=== PATIENT | female | born 1965 | race Two or more races ===

== ENCOUNTER 2019-12-19 22:29 | Inpatient (IN) | payer MEDICAID, OTHER ==
[~2019-12-19] VITALS: Ht 160 cm; Wt 61.4 kg
[2019-12-19] MEDS ORDERED: normal saline 1000ML IV soln IVB ONE (22:45)
[2019-12-19] MEDS ORDERED: ondansetron/PF 4mg/2ml inj IV ONE (22:45)
[2019-12-19 23:08] LABS: BASOPHILS # (AUTO) 0.1 X10'3 (0-0.2); BASOPHILS % (AUTO) 0.6 % (0-1); EOSINOPHILS # (AUTO) 0.1 X10'3 (0-0.9); EOSINOPHILS % (AUTO) 1.3 % (0-6); HEMATOCRIT 40.5 % (35.0-45.0); HEMOGLOBIN 14.3 g/dl (12.0-16.0); LYMPHOCYTES # (AUTO) 1.6 X10'3 (1.1-4.8); LYMPHOCYTES % (AUTO) 17.3 % (21-51); MEAN CORPUSCULAR HEMOGLOBIN 29.6 PG (27.0-31.0); MEAN CORPUSCULAR HGB CONC 35.4 g/dL (33.0-36.5); MEAN CORPUSCULAR VOLUME 83.7 FL (78-98); MEAN PLATELET VOLUME 7.7 FL (7.4-10.4); MONOCYTES # (AUTO) 0.5 X10'3 (0-0.9); MONOCYTES % (AUTO) 5.8 % (2-12); NEUTROPHILS # (AUTO) 7.1 X10'3 (1.8-7.7); PLATELET COUNT 251 X10'3 (140-440); RED BLOOD COUNT 4.83 X10'6 (4.20-5.60); RED CELL DISTRIBUTION WIDTH 12.9 % (11.5-14.5); WHITE BLOOD COUNT 9.4 X10'3 (4.5-11.0)
[2019-12-19 23:28] LABS: ALANINE AMINOTRANSFERASE 30 U/L (12-78); ALBUMIN 4.2 G/DL (3.4-5.0); ALBUMIN/GLOBULIN RATIO 1.4 (1.1-1.5); ALKALINE PHOSPHATASE 66 IU/L (46-116); ANION GAP 14 (8-16); ASPARTATE AMINO TRANSFERASE 21 U/L (10-37); BILIRUBIN,TOTAL 0.4 MG/DL (0.1-1.0); BLOOD UREA NITROGEN 11 MG/DL (7-18); BUN/CREATININE RATIO 12.9 (6.6-38.0); CALCIUM 8.6 MG/DL (8.5-10.1); CHLORIDE 75 MMOL/L (99-107); CREATININE 0.85 MG/DL (0.40-0.90); GLUCOSE 178 MG/DL (70-104); LIPASE 154 U/L (73-393); TOTAL CARBON DIOXIDE 25.9 MMOL/L (24-32); TOTAL PROTEIN 7.3 G/DL (6.4-8.2); eGFR 69 ML/MIN
[2019-12-19 23:32] LABS: POTASSIUM 2.6 MMOL/L (3.5-5.1); SODIUM 115 MMOL/L (135-145)
[2019-12-19 23:34] LABS: CLARITY,URINE CLEAR (Clear); COLOR,URINE YELLOW (Yellow); GLUCOSE, URINE NEGATIVE (Neg); KETONES,URINE 15 mg/dl (Neg); LEUKOCYTE ESTERASE ,URINE NEGATIVE (Neg); NITRITES, URINE NEGATIVE (Neg); OCCULT BLOOD,URINE NEGATIVE (Neg); PROTEIN,URINE 30 mg/dl (Neg); UROBILINOGEN,URINE 0.2 E.U/dL (0.2-1.0)
[2019-12-19] MEDS ORDERED: CITA20TA27 PO (23:35)
[2019-12-19] MEDS ORDERED: ATOR40TA72 PO (23:35)
[2019-12-19] MEDS ORDERED: LISI40TA4 PO (23:35)
[2019-12-19] MEDS ORDERED: CHLO50TA PO (23:35)
[2019-12-19] MEDS ORDERED: ASPI-10 PO (23:35)
[2019-12-19] MEDS ORDERED: METF-438 PO (23:35)
[2019-12-19 23:38] LABS: UA COLLECTION TYPE CLN CATCH MIDSTREAM
[2019-12-19] MEDS ORDERED: potassium Cl 20 mEq SR tablet PO ONE (23:40)
[2019-12-19 23:42] LABS: BACTERIA,URINE FEW /HPF (Neg); MUCUS STRANDS FEW /LPF (Neg); RBC,URINE NONE SEEN /HPF (0-2); SQUAMOUS EPITHELIAL CELL,UR FEW /LPF (FEW); WBC,URINE NONE SEEN /HPF (0-4)
[2019-12-19] MEDS: magnesium 2GM in 50ml NS 50 ML IV SCH (23:50)
[2019-12-19] MEDS: potassium Cl 10 mEq/100mL bag IV SCH (23:50)
[2019-12-20] MEDS ORDERED: LORazepam 2 mg/ml vial IV ONE (00:15)
[2019-12-20 00:18] LABS: MAGNESIUM 1.5 MG/DL (1.5-2.4)
[2019-12-20] MEDS ORDERED: potassium cl 20mEq in 1/2 NS 1,000 ML IV SCH (00:31)
[2019-12-20] MEDS ORDERED: dextrose ORAL solution 15 GM/59 ML bottle PO PRN ×2 (00:35)
[2019-12-20] MEDS ORDERED: acetaminophen 325mg tablet PO PRN (00:35)
[2019-12-20] MEDS ORDERED: glucagon, human recombinant 1mg kit SUBCUT PRN (00:35)
[2019-12-20] MEDS ORDERED: potassium Cl 20 mEq SR tablet PO PRN ×2 (00:35)
[2019-12-20] MEDS ORDERED: MESSAGE TO PHARMACY PO ONE (00:35)
[2019-12-20] MEDS ORDERED: insulin Lispro (HumaLOG) vial - multi-dose SQ SCH (00:35)
[2019-12-20] MEDS ORDERED: ondansetron/PF 4mg/2ml inj IV PRN (00:35)
[2019-12-20] MEDS ORDERED: dextrose 50%-water 50ml dispensing syringe IV PRN ×2 (00:35)
[2019-12-20] MEDS ORDERED: mag hydrox/Alum hydrox/simeth 30ml oral suspension PO PRN (00:35)
[2019-12-20] MEDS ORDERED: magnesium hydroxide 30ml (MOM) UD suspension PO PRN (00:35)
[2019-12-20] MEDS ORDERED: potassium CL 10mEq/100ml bag 100 ML IV PRN (00:35)
[2019-12-20] MEDS ORDERED: ALPRAZolam 0.25mg tablet PO PRN (00:40)
[2019-12-20] MEDS: magnesium 2GM in 50ml NS 50 ML IV SCH (00:40)
[2019-12-20] MEDS ORDERED: Potassium Cl inj 20 MEQ in normal saline 1000ml 990 ML IV SCH (01:10)
[2019-12-20] MEDS: potassium Cl 10 mEq/100mL bag IV SCH (01:18)
--- NOTE | 2019-12-20 01:42 | NUR ---
Patient in room ED 3. I have received report from CAREY Cisneros and had the opportunity to ask questions and assume patient care.
--- NOTE | 2019-12-20 01:55 | NUR ---
Patient arrived to the floor and was able to ambulate from [facility] in hallway to the bed with sba. Her daughter is at bedside and the patient has a stable gait and call light is in reach. She has been instructed to call for help and not to get out of bed on her own.
[2019-12-20 02:00] VITALS: BP 157/100
[2019-12-20] MEDS: potassium CL 10mEq/100ml bag 100 ML IV PRN ×3 (02:33→06:25)
[2019-12-20] MEDS: potassium Cl 20mEq in NS 1,000 ML IV SCH ×2 (02:38→10:57)
--- NOTE | 2019-12-20 06:29 | NUR ---
Problems reprioritized. Patient report given, questions answered & plan of care reviewed with CAREY Steele.
[2019-12-20 07:00] VITALS: BP 126/82
[2019-12-20] MEDS: K and/or MAG REPLACEMENT MC SCH ×2 (08:00→20:00)
[2019-12-20 08:14] LABS: ALANINE AMINOTRANSFERASE 30 U/L (12-78); ALBUMIN 3.7 G/DL (3.4-5.0); ALBUMIN/GLOBULIN RATIO 1.3 (1.1-1.5); ALKALINE PHOSPHATASE 57 IU/L (46-116); ANION GAP 6 (8-16); ASPARTATE AMINO TRANSFERASE 26 U/L (10-37); BILIRUBIN,TOTAL 0.4 MG/DL (0.1-1.0); BLOOD UREA NITROGEN 9 MG/DL (7-18); BUN/CREATININE RATIO 11.3 (6.6-38.0); CALCIUM 8.1 MG/DL (8.5-10.1); CHLORIDE 84 MMOL/L (99-107); GLUCOSE 135 MG/DL (70-104); POTASSIUM 3.8 MMOL/L (3.5-5.1); TOTAL CARBON DIOXIDE 29.5 MMOL/L (24-32); TOTAL PROTEIN 6.6 G/DL (6.4-8.2); eGFR 74 ML/MIN
[2019-12-20 08:17] LABS: SODIUM 119 MMOL/L (135-145)
[2019-12-20 08:53] LABS: BASOPHILS % (AUTO) 0.4 % (0-1); EOSINOPHILS # (AUTO) 0.1 X10'3 (0-0.9); EOSINOPHILS % (AUTO) 0.7 % (0-6); HEMATOCRIT 37.7 % (35.0-45.0); HEMOGLOBIN 13.3 g/dl (12.0-16.0); LYMPHOCYTES # (AUTO) 1.2 X10'3 (1.1-4.8); LYMPHOCYTES % (AUTO) 11.9 % (21-51); MEAN CORPUSCULAR HEMOGLOBIN 29.6 PG (27.0-31.0); MEAN CORPUSCULAR HGB CONC 35.2 g/dL (33.0-36.5); MEAN CORPUSCULAR VOLUME 83.9 FL (78-98); MEAN PLATELET VOLUME 7.8 FL (7.4-10.4); MONOCYTES # (AUTO) 0.5 X10'3 (0-0.9); MONOCYTES % (AUTO) 5.2 % (2-12); NEUTROPHILS # (AUTO) 8.6 X10'3 (1.8-7.7); NEUTROPHILS % (AUTO) 81.8 % (42-75); PLATELET COUNT 268 X10'3 (140-440); RED CELL DISTRIBUTION WIDTH 13.3 % (11.5-14.5); WHITE BLOOD COUNT 10.5 X10'3 (4.5-11.0)
[2019-12-20] MEDS: citalopram 20mg tablet PO SCH (08:59)
[2019-12-20] MEDS: aspirin 81mg tablet.DR PO SCH (08:59)
[2019-12-20] MEDS: atorvastatin 20mg tablet PO SCH (09:00)
[2019-12-20] MEDS: lisinopril 20mg tablet PO SCH (09:01)
[2019-12-20] MEDS: heparin, porcine 5000 units/ml vial SQ SCH ×2 (09:02→20:21)
[2019-12-20 10:00] VITALS: BP 116/78
[2019-12-20] MEDS: amLODIPine 5mg tablet PO SCH (10:28)
[2019-12-20] MEDS: normal saline 1000ml 1,000 ML IV SCH ×2 (10:36→20:21)
--- NOTE | 2019-12-20 12:16 | NUR ---
Student documentation: I have reviewed all interventions, assessments performed and documented by Roger Burrows. Student Medication Administration: For this medication-pass time frame, all medication were reviewed, dispensed, administered and documented per hospital policy by Roger Burrows.
--- NOTE | 2019-12-20 12:25 | NUR ---
DM Consult: A1C 7.1. Pt admit w/ hyponatremia and hypokalemia and N/V; recent metformin increase to BID from once daily per MD note. Na up to 119 from 115 on admit and K now WNL up from 2.6. Noted pt takes chlorthalidone at home as well. Pt/daughter seen by RD for written/verbal DM ed w/ RD contact information provided. RD reviewed types of carbs, portion sizing, protein foods, sick day guidelines, and oral hydration needs. Pt reports does eat lots of rice at home; RD encouraged following portion sizing guidelines. Addendum: 12/20/19 at [address] Amended: Links added.
[2019-12-20 18:00] VITALS: BP 106/68
--- NOTE | 2019-12-20 18:20 | NUR ---
Patient in room [facility] 4023B. I have received report from CAREY Yee and had the opportunity to ask questions and assume patient care.
[2019-12-20] MEDS ORDERED: insulin glargine (Lantus) pen - multi-dose SQ SCH (21:00)
[2019-12-20 22:00] VITALS: BP 119/75
[2019-12-21 06:00] VITALS: BP 122/81
--- NOTE | 2019-12-21 06:20 | NUR ---
Problems reprioritized. Patient report given, questions answered & plan of care reviewed with CAREY Yee.
[2019-12-21 06:31] LABS: BASOPHILS % (AUTO) 0.4 % (0-1); EOSINOPHILS # (AUTO) 0.2 X10'3 (0-0.9); HEMATOCRIT 37.9 % (35.0-45.0); LYMPHOCYTES # (AUTO) 1.6 X10'3 (1.1-4.8); LYMPHOCYTES % (AUTO) 28.6 % (21-51); MEAN CORPUSCULAR HEMOGLOBIN 29.5 PG (27.0-31.0); MEAN CORPUSCULAR HGB CONC 34.3 g/dL (33.0-36.5); MEAN PLATELET VOLUME 7.8 FL (7.4-10.4); MONOCYTES # (AUTO) 0.4 X10'3 (0-0.9); MONOCYTES % (AUTO) 7.5 % (2-12); NEUTROPHILS # (AUTO) 3.4 X10'3 (1.8-7.7); NEUTROPHILS % (AUTO) 60.5 % (42-75); PLATELET COUNT 233 X10'3 (140-440); RED BLOOD COUNT 4.41 X10'6 (4.20-5.60); RED CELL DISTRIBUTION WIDTH 13.5 % (11.5-14.5); WHITE BLOOD COUNT 5.7 X10'3 (4.5-11.0)
[2019-12-21 06:43] LABS: ALANINE AMINOTRANSFERASE 37 U/L (12-78); ALBUMIN 3.4 G/DL (3.4-5.0); ALBUMIN/GLOBULIN RATIO 1.2 (1.1-1.5); ALKALINE PHOSPHATASE 53 IU/L (46-116); ANION GAP 9 (8-16); ASPARTATE AMINO TRANSFERASE 25 U/L (10-37); BILIRUBIN,TOTAL 0.3 MG/DL (0.1-1.0); BLOOD UREA NITROGEN 10 MG/DL (7-18); BUN/CREATININE RATIO 14.5 (6.6-38.0); CHLORIDE 101 MMOL/L (99-107); CREATININE 0.69 MG/DL (0.40-0.90); GLUCOSE 130 MG/DL (70-104); POTASSIUM 3.6 MMOL/L (3.5-5.1); SODIUM 137 MMOL/L (135-145); TOTAL CARBON DIOXIDE 27.5 MMOL/L (24-32); TOTAL PROTEIN 6.2 G/DL (6.4-8.2); eGFR 88 ML/MIN
[2019-12-21] MEDS: heparin, porcine 5000 units/ml vial SQ SCH (08:00)
[2019-12-21] MEDS ORDERED: HCTZ25T PO (09:49)
[2019-12-21] MEDS ORDERED: METF-950 PO (09:49)
[2019-12-21] MEDS ORDERED: ASPI-1071 PO (09:49)
[2019-12-21] MEDS: aspirin 81mg tablet.DR PO SCH (10:04)
[2019-12-21] MEDS: citalopram 20mg tablet PO SCH (10:04)
[2019-12-21] MEDS: atorvastatin 20mg tablet PO SCH (10:06)
[2019-12-21] MEDS: amLODIPine 5mg tablet PO SCH (10:06)
[2019-12-21 10:07] VITALS: BP_SYST 122
[2019-12-21] MEDS: lisinopril 20mg tablet PO SCH (10:07)
--- NOTE | 2019-12-21 10:45 | NUR ---
Received discharge orders from Dr. Zeng. IV dc'd with cannula intact. No redness/swelling at insertion site. Reviewed discharge instructions with pt. Pt discharged via w/c to private vehicle.
== END 2019-12-21 10:45 | disposition home or self-care (01) | DRG 641 ==
LOC: ER 22:30 → ED HOLD 12-20 00:31 → ORTHO 4S 12-20 01:57
PROVIDERS: ADMIT Internal Medicine; ATTEND Internal Medicine
DX: E87.1 Hypo-osmolality and hyponatremia (principal); E11.65 Type 2 diabetes mellitus with hyperglycemia; E78.5 Hyperlipidemia, unspecified; E87.6 Hypokalemia; I10 Essential (primary) hypertension; K29.00 Acute gastritis without bleeding; F32.9 Major depressive disorder, single episode, unspecified; F41.9 Anxiety disorder, unspecified; Z79.84 Long term (current) use of oral hypoglycemic drugs; Z88.8 Allergy status to other drugs, medicaments and biological substances; Z79.899 Other long term (current) drug therapy; Z79.82 Long term (current) use of aspirin
CPT/HCPCS: 36415; 80053; 81001; 82948; 83036; 83605; 83690; 83735; 84443; 85025; 87081; 99285; G0378; J1644; J1815; J2060; J2405; J3475; J3480; J7030

== ENCOUNTER 2020-03-22 02:01 | Emergency (ER) | payer OTHER ==
[~2020-03-22] VITALS: Ht 160 cm; Wt 67.4 kg
[~2020-03-22 02:01] MED LIST: ASPI-1071 PO; ATOR40TA72 PO; CITA20TA27 PO; HCTZ25T PO; LISI40TA4 PO
[2020-03-22] MEDS ORDERED: METF500T PO (02:49)
[2020-03-22] MEDS ORDERED: METF-438 PO (02:49)
[2020-03-22] MEDS ORDERED: CHLO25TA10 PO (02:50)
[2020-03-22 02:51] LABS: CLARITY,URINE CLEAR (Clear); COLOR,URINE YELLOW (Yellow); GLUCOSE, URINE NEGATIVE (Neg); KETONES,URINE NEGATIVE (Neg); LEUKOCYTE ESTERASE ,URINE NEGATIVE (Neg); NITRITES, URINE NEGATIVE (Neg); OCCULT BLOOD,URINE NEGATIVE (Neg); PROTEIN,URINE NEGATIVE (Neg); UROBILINOGEN,URINE 0.2 E.U/dL (0.2-1.0)
[2020-03-22 02:52] LABS: UA COLLECTION TYPE CLN CATCH MIDSTREAM
[2020-03-22 03:00] LABS: BASOPHILS % (AUTO) 0.7 % (0-1); EOSINOPHILS # (AUTO) 0.3 X10'3 (0-0.9); EOSINOPHILS % (AUTO) 4.9 % (0-6); HEMATOCRIT 39.8 % (35.0-45.0); LYMPHOCYTES # (AUTO) 1.6 X10'3 (1.1-4.8); LYMPHOCYTES % (AUTO) 28.6 % (21-51); MEAN CORPUSCULAR HEMOGLOBIN 29.9 PG (27.0-31.0); MEAN CORPUSCULAR HGB CONC 35.1 g/dL (33.0-36.5); MEAN CORPUSCULAR VOLUME 85.4 FL (78-98); MONOCYTES # (AUTO) 0.3 X10'3 (0-0.9); NEUTROPHILS # (AUTO) 3.4 X10'3 (1.8-7.7); NEUTROPHILS % (AUTO) 59.8 % (42-75); PLATELET COUNT 237 X10'3 (140-440); RED BLOOD COUNT 4.66 X10'6 (4.20-5.60); RED CELL DISTRIBUTION WIDTH 13.1 % (11.5-14.5); WHITE BLOOD COUNT 5.7 X10'3 (4.5-11.0)
[2020-03-22 03:29] LABS: ALANINE AMINOTRANSFERASE 38 U/L (12-78); ALBUMIN 3.9 G/DL (3.4-5.0); ALBUMIN/GLOBULIN RATIO 1.2 (1.1-1.5); ALKALINE PHOSPHATASE 57 IU/L (46-116); ANION GAP 5 (8-16); ASPARTATE AMINO TRANSFERASE 21 U/L (10-37); BILIRUBIN,TOTAL 0.5 MG/DL (0.1-1.0); BLOOD UREA NITROGEN 14 MG/DL (7-18); BUN/CREATININE RATIO 18.2 (6.6-38.0); CALCIUM 8.8 MG/DL (8.5-10.1); CHLORIDE 88 MMOL/L (99-107); CREATININE 0.77 MG/DL (0.40-0.90); GLUCOSE 146 MG/DL (70-104); SODIUM 123 MMOL/L (135-145); TOTAL CARBON DIOXIDE 29.9 MMOL/L (24-32); TOTAL PROTEIN 7.1 G/DL (6.4-8.2); eGFR 78 ML/MIN
[2020-03-22 03:37] LABS: POTASSIUM 2.8 MMOL/L (3.5-5.1)
[2020-03-22] MEDS ORDERED: normal saline 1000ML IV soln IVB ONE ×2 (03:45→04:50)
[2020-03-22] MEDS ORDERED: magnesium oxide 400mg tablet PO ONE (03:45)
[2020-03-22] MEDS ORDERED: potassium Cl 20 mEq SR tablet PO ONE (03:45)
[2020-03-22] MEDS ORDERED: POTA20TA19 PO (04:47)
[2020-03-22 05:35] VITALS: BP 145/90
== END 2020-03-22 05:41 | disposition home or self-care (01) ==
LOC: ER 02:02
DX: E11.65 Type 2 diabetes mellitus with hyperglycemia (principal); E87.1 Hypo-osmolality and hyponatremia; E87.6 Hypokalemia; I10 Essential (primary) hypertension; F32.9 Major depressive disorder, single episode, unspecified; Z88.1 Allergy status to other antibiotic agents; Z79.82 Long term (current) use of aspirin; Z79.84 Long term (current) use of oral hypoglycemic drugs; Z79.899 Other long term (current) drug therapy
CPT/HCPCS: 36415; 71045; 80053; 81003; 82948; 84443; 84484; 85025; 93005; 96360; 99285; J7030